=== PATIENT | male | born 1955 | race Caucasian/White ===

== ENCOUNTER 2025-07-23 08:46 | Outpatient (CLI) | payer MEDICARE, OTHER | END 2025-07-23 08:47 | disposition home or self-care (01) | LOC: CSHSLEEP 08:46 | PROVIDERS: ATTEND Family Medicine | DX: G47.9 Sleep disorder, unspecified (principal); G47.61 Periodic limb movement disorder; R53.83 Other fatigue; G47.33 Obstructive sleep apnea (adult) (pediatric) | CPT/HCPCS: 95810 ==